=== PATIENT | male | born 1975 | race Hispanic/Latino ===

== ENCOUNTER 2018-01-27 11:57 | Emergency (ER) | payer BC ==
[2018-01-27 12:25] VITALS: RESP 18; TEMP 98.2
--- NOTE | 2018-01-27 12:31 | ED PDOC ---
Arrival/HPI - General Chief Complaint: Back Pain Time Seen by Provider: 01/27/18 12:13 Historian: Patient - History of Present Illness Narrative History of Present Illness (Text): 01/27/18 12:31 42 year old male, whose past medical history includes chronic back pain s/p lumbar fusion 4 years ago at [facility], presents to the emergency department complaining of lower back pain that radiates to the thighs. Patient describes the pain as a burning and stabbing sensation. Patient states he cannot stand or walk. Patient denies any fall or trauma. He reports taking Soma and Motrin with no relief. Patient's last MRI was done in 2014. Patient denies any fever, chills, chest pain, shortness of breath, nausea, vomiting, diarrhea, urinary symptoms, neck pain, headache, dizziness, numbness, or any other complaints. PMD: Dr. Lyle Carroll Symptom Onset: Gradual Symptom Course: Unchanged Quality: Stabbing, Burning Activities at Onset: Light Context: Home Past Medical History - Provider Review Nursing Documentation Reviewed: Yes - Psychiatric Hx Substance Use: No - Anesthesia Hx Anesthesia: Yes Hx Anesthesia Reactions: No Hx Malignant Hyperthermia: No Family/Social History - Physician Review Nursing Documentation Reviewed: Yes Family/Social History: No Known Family HX Smoking Status: Never Smoked Hx Alcohol Use: No Hx Substance Use: No Allergies/Home Meds Allergies/Adverse Reactions: Allergies No Known Allergies Allergy (Verified 01/27/18 12:05) Home Medications: Home Meds Medication Instructions Recorded Confirmed Buprenorphine HCl/Naloxone HCl 1 tab PO DAILY 01/27/18 01/27/18 [Suboxone 8 mg-2 mg Sl Film] buPROPion [Wellbutrin] 150 mg PO DAILY 01/27/18 01/27/18 Review of Systems - Physician Review All systems were reviewed & negative as marked: Yes - Review of Systems Constitutional: absent: Fevers, Other (Chills) Respiratory: absent: SOB Cardiovascular: absent: Chest Pain Gastrointestinal: absent: Diarrhea, Nausea, Vomiting Genitourinary Male: absent: Dysuria, Frequency, Hematuria Musculoskeletal: Back Pain (lower). absent: Neck Pain Neurological: absent: Headache, Dizziness, Other (numbness) Physical Exam Vital Signs Reviewed: Yes Vital Signs Temp Pulse Resp BP Pulse Ox 01/27/18 12:22 98.2 F 105 H 18 101/63 96 Temperature: Afebrile Blood Pressure: Normal Pulse: Tachycardic Respiratory Rate: Normal Appearance: Positive for: Well-Appearing, Non-Toxic, Comfortable Pain Distress: None Mental Status: Positive for: Alert and Oriented X 3 - Systems Exam Head: Present: Atraumatic, Normocephalic Pupils: Present: PERRL Extroacular Muscles: Present: EOMI Conjunctiva: Present: Normal Mouth: Present: Moist Mucous Membranes Neck: Present: Normal Range of Motion Respiratory/Chest: Present: Clear to Auscultation, Good Air Exchange. No: Respiratory Distress, Accessory Muscle Use Cardiovascular: Present: Regular Rate and Rhythm, Normal S1, S2. No: Murmurs Abdomen: No: Tenderness, Distention, Peritoneal Signs Back: Present: Other (diffuse lower back pain) Upper Extremity: Present: Normal Inspection. No: Cyanosis, Edema Lower Extremity: Present: Normal Inspection. No: Edema Neurological: Present: GCS=15, CN II-XII Intact, Speech Normal Skin: Present: Warm, Dry, Normal Color. No: Rashes Psychiatric: Present: Alert, Oriented x 3, Normal Insight, Normal Concentration Medical Decision Making ED Course and Treatment: 01/27/18 12:31 Impression: 42 year old male presents complaining of lower back pain that radiates down to his thighs. Patient's past medical history includes s/p spinal fusion 4 years ago. Plan: -- Spinal Canal Lumbar MRI -- Percocet -- Reassess and disposition Progress Notes: 01/27/18 16:59 Lumbar Spine MRI without contrast: Dictator : Shashi Chacko MD IMPRESSION: L3-4. Moderate size central disc protrusion. Fusion at L4-5 and L5-S1. No complicating factors. - RAD Interpretation Plate Grainer: Radiologist - Scribe Statement The provider has reviewed the documentation as recorded by the Scribe Ramin Flannery Provider Scribe Attestation: All medical record entries made by the Scribe were at my direction and personally dictated by me. I have reviewed the chart and agree that the record accurately reflects my personal performance of the history, physical exam, medical decision making, and the department course for this patient. I have also personally directed, reviewed, and agree with the discharge instructions and disposition. Disposition/Present on Arrival - Present on Arrival Any Indicators Present on Arrival: No History of DVT/PE: No History of Uncontrolled Diabetes: No Urinary Catheter: No History of Decub. Ulcer: No History Surgical Site Infection Following: None - Disposition Have Diagnosis and Disposition been Completed?: Yes Diagnosis: Herniated lumbar intervertebral disc Disposition: HOME/ ROUTINE Disposition Time: 16:40 Condition: GOOD Discharge Instructions (ExitCare): Herniated Disc (DC) Additional Instructions: GOLDY WALL, thank you for letting us take care of you today. Your provider was Carloz Mena DO and you were treated for BACK PAIN. The emergency medical care you received today was directed at your acute symptoms. If you were prescribed any medication, please fill it and take as directed. It may take several days for your symptoms to resolve. Return to the Emergency Department if your symptoms worsen, do not improve, or if you have any other problems. Please contact your doctor or call one of the physicians/clinics you have been referred to that are listed on the Patient Visit Information form that is included in your discharge packet. Bring any paperwork you were given at discharge with you along with any medications you are taking to your follow up visit. Our treatment cannot replace ongoing medical care by a primary care provider outside of the emergency department. Thank you for allowing the [facility] team to be part of your care today. Follow up with your pain management doctor and orthopedic doctor in 3-4 days for re-evaluation and further management. Prescriptions: Acetaminophen/Oxycodone Hydr [Percocet 10/325 mg Tab] 1 tab PO Q6 PRN #20 tab PRN Reason: Pain, Severe (8-10) Referrals: [facility] Sylwia Castaneda, [Non-Staff] - Follow up with primary Forms: REach (Swedish)
[2018-01-27] MEDS ORDERED: Oxycodone/Acetaminophen 5/325 mg Tab PO STA (12:38)
--- NOTE | 2018-01-27 16:43 | MRI ---
Date of service: 01/27/2018 PROCEDURE: MR LUMBAR SPINE WITHOUT CONTRAST HISTORY: lower back pain h/o lumbar fusion COMPARISON: None available. TECHNIQUE: Multiecho multiplanar sequences were performed through the lumbar spine without the use of intravenous contrast. FINDINGS: Mild scoliotic curvature to the right with a Aburto angle of 22 degrees Vertebral body heights are preserved. Marrow signal unremarkable. Conus medullaris unremarkable at the level of L1 Paraspinal soft tissues are unremarkable. T12-L1: No disc herniation, spinal canal stenosis or neural foraminal narrowing. L1-2: No disc herniation, spinal canal stenosis or neural foraminal narrowing. L2-3: No disc herniation, spinal canal stenosis or neural foraminal narrowing. L3-4: There is a moderate size central disc protrusion with minimal flattening of the thecal sac. L4-5: There is an intradiscal fusion device. There is a pedicle screw on the left. There is mild facet arthropathy. No significant foraminal or central stenosis L5-S1: Left-sided pedicle screws at L5 and S1. Mild right-sided foraminal stenosis OTHER FINDINGS: None. IMPRESSION: L3-4. Moderate size central disc protrusion. Fusion at L4-5 and L5-S1. No complicating factors
[2018-01-27 17:52] VITALS: BP 105/65; PULSE 91; O2SAT 100
== END 2018-01-27 18:02 | disposition home or self-care (01) ==
LOC: ED 11:57 → EDBD 11:57 → ED 18:02
DX: M51.26 Other intervertebral disc displacement, lumbar region (principal)